=== PATIENT | male | born 1985 | race African-American/Black ===

== ENCOUNTER 2020-03-22 19:21 | Emergency (ER) | payer MEDICAID ==
[~2020-03-22] VITALS: Ht 177.8 cm; Wt 72.6 kg
[2020-03-22 19:33] VITALS: BP 151/95
--- NOTE | 2020-03-22 19:33 | NUR ---
ED Nurse Note: patient ambulated to ed c/o jaw pain and behavioural disturbances. patient states he would like to sleep through the night at the hospital because he doesnt want to be alone. patient states he "feels like a danger to self when alone". denies current hi or si. changed into gown and placed in room. environmental safety precautions observed. belongings placed in pysch locker #2. all safety measures in place.
[2020-03-22] MEDS ORDERED: QUETIAPINE FUMA25 MG ORAL (19:43)
--- NOTE | 2020-03-22 20:53 | Emergency Room Report ---
History of Present Illness General Chief Complaint: Pain Source: Patient Present Illness HPI The patient states that for the past few days he has been very depressed. He states he has been having suicidal thoughts. He states he is started articulating a plan. He states he currently is obsessing about the advance directive paper that he was given by the triage nurse. He is thinking a lot about and dying. He does have a history of bipolar disorder and depression. He states he has been on Seroquel but states that he did not like the way it made him feel so he stopped taking it. He states that he feels like he is a danger to himself. He states he was walking on the street and saw the hospital and came in for help. Allergies: Coded Allergies: No Known Allergies (Unverified , 03/22/20) COVID-19 Screening Contact w/high risk pt: No Experienced COVID-19 symptoms?: No COVID-19 Testing performed MARKETING SYSTEMS ANALYST: No Patient History Past Medical History: see triage record, psych hx - Bipolar/Depression Social History: Denies: smoking, alcohol use, drug use Reviewed Nursing Documentation: PMH: Agreed; PSxH: Agreed Nursing Documentation-PMH Past Medical History: No History, Except For Review of Systems All Other Systems: negative except mentioned in HPI Physical Exam Vital Signs Date Time Temp Pulse Resp B/P (MAP) Pulse Ox O2 Delivery O2 Flow Rate FiO2 03/22/20 19:33 98.8 93 16 151/95 (113) 100 Room Air Sp02 EP Interpretation: reviewed, normal General Appearance: no apparent distress, alert, GCS 15, non-toxic Head: normocephalic, atraumatic Eyes: bilateral eye normal inspection, bilateral eye PERRL ENT: hearing grossly normal, normal pharynx, no angioedema, normal voice Neck: normal inspection, full range of motion, supple/symm/no masses Respiratory: no respiratory distress, no retraction, no accessory muscle use, speaking full sentences Cardiovascular #1: regular rate, rhythm, no edema Gastrointestinal: normal bowel sounds, non tender, soft, non-distended, no guarding, no rebound Rectal: deferred Musculoskeletal: back normal, normal range of motion, gait/station normal, non- tender Neurologic: alert, motor strength/tone normal, oriented x3, sensory intact, responsive, speech normal Psychiatric: judgement/insight normal, memory normal, depressed affect, other - Suicidal ideations Skin: no rash, normal color Medical Decision Making Diagnostic Impression: Primary Impression: Depression Additional Impression: Suicidal ideation ER Course This patient has suicidal ideation and feels he is a danger to himself. He is voluntary and is awaiting placement in a psych facility. He remained pleasant and compliant during his ED course under my care. He is medically cleared for psychiatric inpatient treatment. This patient was evaluated in the context of the global COVID-19 pandemic, which necessitated consideration that the patient might be at risk for infection with the [id number] virus that causes COVID-19. Institutional protocols and algorithms that pertain to the evaluation of patients at risk for COVID-19 and the state of rapid change based on information released by multiple regulatory bodies including the CDC and federal and state organizations. These policies and algorithms were followed during the patient's care in the ED. Laboratory Tests Test 03/22/20 21:00 03/22/20 22:00 White Blood Count 6.3 K/UL (4.8-10.8) Red Blood Count 4.64 M/UL (4.70-6.10) L Hemoglobin 14.8 G/DL (14.2-18.0) Hematocrit 44.2 % (42.0-52.0) Mean Corpuscular Volume 95 FL (80-99) Mean Corpuscular Hemoglobin 31.9 PG (27.0-31.0) H Mean Corpuscular Hemoglobin Concent 33.5 G/DL (32.0-36.0) Red Cell Distribution Width 13.5 % (11.6-14.8) Platelet Count 159 K/UL (150-450) Mean Platelet Volume 12.8 FL (6.5-10.1) H Neutrophils (%) (Auto) 52.1 % (45.0-75.0) Lymphocytes (%) (Auto) 31.7 % (20.0-45.0) Monocytes (%) (Auto) 11.9 % (1.0-10.0) H Eosinophils (%) (Auto) 2.1 % (0.0-3.0) Basophils (%) (Auto) 2.3 % (0.0-2.0) H Sodium Level 138 MMOL/L (136-145) Potassium Level 5.0 MMOL/L (3.5-5.1) Chloride Level 102 MMOL/L (98-107) Carbon Dioxide Level 31 MMOL/L (21-32) Anion Gap 5 mmol/L (5-15) Blood Urea Nitrogen 14 mg/dL (7-18) Creatinine 0.9 MG/DL (0.55-1.30) Estimated Glomerular Filtration Rate > 60 mL/min (>60) Glucose Level 89 MG/DL (74-106) Calcium Level 10.0 MG/DL (8.5-10.1) Total Bilirubin 0.4 MG/DL (0.2-1.0) Aspartate Amino Transferase (AST) 82 U/L (15-37) H Alanine Aminotransferase (ALT) 38 U/L (12-78) Alkaline Phosphatase 88 U/L (46-116) Total Protein 8.2 G/DL (6.4-8.2) Albumin 4.2 G/DL (3.4-5.0) Globulin 4.0 g/dL Albumin/Globulin Ratio 1.0 (1.0-2.7) Salicylates Level 0.6 ug/mL (2.8-20) L Acetaminophen Level < 2 MCG/ML (10-30) L Serum Alcohol < 3 mg/dL Urine Opiates Screen Negative (NEGATIVE) Urine Barbiturates Screen Negative (NEGATIVE) Phencyclidine (PCP) Screen Negative (NEGATIVE) Urine Amphetamines Screen Negative (NEGATIVE) Urine Benzodiazepines Screen Negative (NEGATIVE) Urine Cocaine Screen Positive (NEGATIVE) H Urine Marijuana (THC) Screen Negative (NEGATIVE) Microbiology Date/Time Source Procedure Growth Status 03/22/20 21:00 Nasopharynx SARS-CoV-2 RdRp Gene Assay - Final Complete Last Vital Signs Date Time Temp Pulse Resp B/P (MAP) Pulse Ox O2 Delivery O2 Flow Rate FiO2 03/22/20 19:33 98.8 93 16 151/95 (113) 100 Room Air Disposition: PSYCH HOSP/UNIT Condition: Stable Referrals: NOT CHOSEN IPA/,REFERRING (PCP) Shanice Abdul DO Mar 22, 2020 20:53
--- NOTE | 2020-03-22 21:00 | NUR ---
ED Nurse Note: iv access established. blood and covid swab collected; sent down to lab.
[2020-03-22 21:58] LABS: ANION GAP 5 mmol/L (5-15); BLOOD UREA NITROGEN 14 mg/dL (7-18); CARBON DIOXIDE 31 MMOL/L (21-32); CHLORIDE 102 MMOL/L (98-107); CREATININE 0.9 MG/DL (0.55-1.30); SODIUM 138 MMOL/L (136-145)
--- NOTE | 2020-03-22 22:00 | NUR ---
ED Nurse Note: urine collected; sent down to lab.
[2020-03-22 22:02] LABS: ALANINE AMINOTRANSFERASE 38 U/L (12-78); ALBUMIN 4.2 G/DL (3.4-5.0); ALKALINE PHOSPHATASE 88 U/L (46-116); ASPARTATE AMINO TRANSFERASE 82 U/L (15-37); BILIRUBIN,TOTAL 0.4 MG/DL (0.2-1.0)
[2020-03-22 22:09] LABS: BASOPHILS % (AUTO) 2.3 % (0.0-2.0); EOSINOPHILS % (AUTO) 2.1 % (0.0-3.0); HEMATOCRIT 44.2 % (42.0-52.0); HEMOGLOBIN 14.8 G/DL (14.2-18.0); LYMPHOCYTES % (AUTO) 31.7 % (20.0-45.0); MEAN CORPUSCULAR VOLUME 95 FL (80-99); MONOCYTES % (AUTO) 11.9 % (1.0-10.0); NEUTROPHILS % (AUTO) 52.1 % (45.0-75.0); PLATELET COUNT 159 K/UL (150-450); RED BLOOD COUNT 4.64 M/UL (4.70-6.10); RED CELL DISTRIBUTION WIDTH 13.5 % (11.6-14.8); WHITE BLOOD COUNT 6.3 K/UL (4.8-10.8)
[2020-03-22 23:39] VITALS: BP 145/92
--- NOTE | 2020-03-22 23:40 | NUR ---
ED Nurse Note: nourishment provided. ambulated to and from bathroom without incident.
--- NOTE | 2020-03-23 | NUR ---
ED Nurse Note: patient ao4 resting in bed with no acute distress. denies hi or si at this time.
[2020-03-23 03:00] VITALS: BP 139/79
--- NOTE | 2020-03-23 03:00 | NUR ---
ED Nurse Note: patient sleeping in bed with no acute distress. vitals stable to baseline. respirations even and unlabored.
[2020-03-23 05:00] VITALS: BP 133/77
--- NOTE | 2020-03-23 05:00 | NUR ---
ED Nurse Note: patient awake alert and oriented x4. ambulated to and from bathroom with steady gait. patient states "i needed that rest. i think i will be fine. i will seek help if i feel suicidal. i want to go home now" confirmed destination after discharge. patient states he will be going home to a safe environment and denies homelessness. ermd aware and patient reevaluated.
--- NOTE | 2020-03-23 05:25 | NUR ---
ED Nurse Note: IV access removed.
[2020-03-23 05:30] VITALS: BP 133/77
--- NOTE | 2020-03-23 05:30 | NUR ---
ER DISCHARGE NOTE: Patient is cleared to be discharged per ERMD, pt is aox4, on room air, with stable vital signs. pt was given dc instructions, pt was able to verbalize understanding, pt id band removed. pt is able to ambulate with steady gait. pt took all belongings.
== END 2020-03-23 05:30 | disposition home or self-care (01) ==
LOC: EMR 20:00
DX: R45.851 Suicidal ideations (principal); F32.9 Major depressive disorder, single episode, unspecified
CPT/HCPCS: 36415; 80053; 80307; 85025; G0480; G0481; U0002; Z7502; 99285